=== PATIENT | female | born 1995 | race Caucasian/White ===

== ENCOUNTER 2018-01-09 18:18 | Emergency (ER) | payer OTHER ==
[~2018-01-09] VITALS: Ht 152.4 cm; Wt 47.2 kg
--- NOTE | ~2018-01-09 | EKG ---
[place], [place] ELECTROCARDIOGRAM REPORT NAME: JOSY BOWERS UNIT #: [id number] ROOM: DOCTOR: EPIPHANY DRAFT REPORT BIRTHDATE: [birth year] [facility] Test Date: 2018-01-09 Test Time: 20:32:18 Pat Name: JOSY BOWERS Department: Room: Gender: F Defect Cutter: Blaire Pena : 1995 Requested By: DELORIS JONES Order Number: [id number] Reading MD: Lisa Vazquez MD Measurements Intervals [place] Rate: 67 P: -4 MT: 127 QRS: 63 QRSD: 68 T: 58 QT: 393 QTc: 415 Interpretive Statements Sinus rhythm Normal ECG Electronically Signed On 01-13-2018 12:17:18 PDT by Lisa Vazquez MD CM:EKGRPT:ELECTROCARDIOGRAM REPORT 31 1217 DELORIS JONES MD EPIPHANY DRAFT REPORT DELORIS JONES MD
--- NOTE | ~2018-01-09 | EKG ---
[place], [place] ELECTROCARDIOGRAM REPORT NAME: JOSY BOWERS UNIT #: [id number] ROOM: DOCTOR: EPIPHANY DRAFT REPORT BIRTHDATE: [birth year] [facility] Test Date: 2018-01-09 Test Time: 18:25:43 Pat Name: JOSY BOWERS Department: Room: Gender: F Risk Engineer: Blaire Pena : 1995 Requested By: MARGY BROWNE Order Number: [id number] Reading MD: Lisa Vazquez MD Measurements Intervals [place] Rate: 86 P: 53 FL: 137 QRS: 46 QRSD: 69 T: 50 QT: 349 QTc: 418 Interpretive Statements Sinus rhythm Normal ECG Electronically Signed On 01-13-2018 12:16:37 PDT by Lisa Vazquez MD CM:EKGRPT:ELECTROCARDIOGRAM REPORT 1825 1216 MARGY AZUL DRAFT REPORT MARGY BROWNE MD
[2018-01-09 18:55] LABS: BASO % 0.4 % (0.0-1.0); EOS # 0.3 10*3/uL (0.0-0.4); EOS % 3.2 % (1.0-4.0); HEMATOCRIT 44.9 % (37.0-47.0); HEMOGLOBIN 15.1 g/dl (12.0-16.0); LYMPH # 2.6 10*3/uL (1.3-4.4); LYMPH % 24.3 % (27.0-41.0); MEAN CELL VOLUME 92.2 fl (81.0-99.0); MEAN CORPUSCULAR HGB CONC 33.6 g/dl (33.0-37.0); MEAN PLATELET VOLUME 8.4 fl (9.6-12.3); MONO # 0.8 10*3/uL (0.1-1.0); MONO % 7.4 % (3.0-9.0); NEUT # 6.7 10*3/uL (2.3-7.9); NEUT % 64.2 % (47.0-73.0); PLATELET COUNT AUTOMATED 258 10*3/uL (130-400); RED BLOOD COUNT 4.87 10*6/uL (4.10-5.10); RED CELL DISTRI WIDTH 12.2 % (0-14.5); WHITE BLOOD COUNT 10.5 10*3/uL (4.8-10.8)
[2018-01-09 19:14] LABS: ALBUMIN 4.1 gm/dl (3.1-4.5); ALKALINE PHOSPHATASE 88 U/L (45-117); BUN 18 mg/dl (7-24); CHLORIDE 105 mmol/L (98-107); CREATININE 0.72 mg/dL (0.55-1.02); SGOT/AST 13 IU/L (3-35); SGPT/ALT 24 U/L (12-78); SODIUM 139 mmol/L (136-145); TOTAL PROTEIN 7.3 gm/dL (6.4-8.2)
[2018-01-09 19:16] LABS: TROPONIN I < 0.015 ng/ml (<0.045)
[2018-01-09 19:30] LABS: BILIRUBIN NEGATIVE (NEGATIVE); BLOOD NEGATIVE (NEGATIVE); CLARITY CLEAR (CLEAR); COLOR YELLOW (YELLOW); GLUCOSE NEGATIVE (NEGATIVE); KETONE NEGATIVE (NEGATIVE); LEUKO ESTERASE NEGATIVE (NEGATIVE); NITRITE NEGATIVE (NEGATIVE); PH 6.5 (5.0-9.0); SPECIFIC GRAVITY 1.025 (1.005-1.030); UROBILINOGEN 0.2 E.U./dl (0.2-1.0)
[2018-01-09 19:35] LABS: URINE AMPHETAMINES < 1000 (1000ng/ml); URINE BARBITURATES < 200 (200ng/ml); URINE BENZODIAZEPINES < 200 (200ng/ml); URINE CANNABINOIDS (THC) > 50 (50ng/ml); URINE COCAINE > 300 (300ng/ml); URINE METHADONE < 300 (300ng/ml); URINE OPIATES < 300 (300ng/ml); URINE PHENCYCLIDINE < 25 (25ng/ml)
[2018-01-09 19:37] LABS: BACTERIA 1+; MUCOUS 1+
[2018-01-12 00:06] LABS: GONOCOCCUS BY NAA Negative (Negative)
== END 2018-01-09 20:51 | disposition home or self-care (01) ==
LOC: ED 18:18
PROVIDERS: Emergency Medicine
DX: R07.9 Chest pain, unspecified (principal); R21 Rash and other nonspecific skin eruption; F19.10 Other psychoactive substance abuse, uncomplicated; F17.210 Nicotine dependence, cigarettes, uncomplicated; Z20.2 Contact with and (suspected) exposure to infections with a predominantly sexual mode of transmission; Z88.6 Allergy status to analgesic agent